=== PATIENT | male | born 1950 | race Caucasian/White ===

== ENCOUNTER 2024-11-01 20:52 | Emergency (ER) | payer BC, SELFPAY ==
--- NOTE | ~2024-11-01 | CT_ITS ---
CT brain wo con Ordering provider: Srinivasa Lam MD History: 74 years Male with . Fall- onEliquis . Comparison: None. Technique: CT of the head without contrast. Radiation reduction technique utilized.The dose-length product was 681 mGy-cm. BRAIN PARENCHYMA AND CSF SPACES: Mild leukoaraiosis and diffuse cortical atrophy. Mild atheromatous d isease. No midline shift, mass effect or hemorrhage. The brain parenchyma and CSF spaces are otherwi se normal. VISUALIZED PARANASAL SINUSES: Bilateral ethmoid sinus disease. MASTOIDS: Well aerated. BONES: The bones appear intact. SOFT TISSUES: Visualized nasopharynx is normal. Superficial soft tissues are normal. Hyperdense area seen in the left eye globe which may be calcification IMPRESSION: No acute intracranial findings. Reviewed, dictated and finalized at location A.
--- NOTE | ~2024-11-01 | CT_ITS ---
CT cervical spine wo con Ordering provider: Srinivasa Lam MD History: . Fall- on Eliquis . Comparison: None. Technique: CT of the cervical spine was performed without contrast. Sagittal and coronal reformatted images were also obtained and reviewed. Automated exposure control and iterative reconstruction estefany hnique were employed. The dose-length product was 568.07 mGy-cm. FINDINGS: VERTEBRAE: No subluxation or acute fracture. The occipital condyles are intact. DISC SPACES: Severe narrowing of the disc spaces C3-C4, C4-C5, C5-C6, C6-C7 and C7-T1. Multilevel fac et joint disease is seen in the upper cervical area. Multilevel uncovertebral joint osteoarthritic ch anges. Bilateral intervertebral foraminal narrowing at the level of C2-C3, C3-C4, C4-C5, C5-C6, C6-C7 and C7 -T1 multilevel spinal canal stenosis seen. PARASPINOUS SOFT TISSUES: Bilateral carotid artery calcifications. IMPRESSION: No acute osseous abnormality cervical spine. Multilevel degenerative disc disease. Reviewed, dictated and finalized at location A.
[2024-11-01 21:23] VITALS: BP 128/66; PULSE 73; RESP 18; TEMP 36.3; O2SAT 96
[2024-11-01 23:26] VITALS: BP 159/70; O2SAT 100
[2024-11-01 23:31] VITALS: BP 151/73; O2SAT 99
--- NOTE | 2024-11-01 23:57 | ED.FALL ---
HPI - Fall General Chief Complaint: Fall Stated Complaint: Fall transferring from WC to bed-hit head,+Eliquis Time Seen by Provider: 11/01/24 23:25 History of Present Illness HPI Narrative: 74-year-old male presenting from his residential facility after a minor closed head injury. Patient states that he was transferring from his wheelchair to the bed when he fell and struck his head. Struck his head on some drawers but did not lose consciousness. Patient states that he feels fine has no complaints but his facility transferred him to the ER as he is on Eliquis. Patient denies any injury and has no somatic complaints at this time and wishes to go back home. Denies any nausea, vomiting, mental status changes, chest pain, shortness a breath. No abdominal pain. 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 Related Data Allergies Allergy/AdvReac Type Severity Reaction Status Date / Time No Known Allergies Allergy Verified 11/01/24 20:56 Review of Systems Review of Systems: As reviewed above in HPI Exam Narrative: GENERAL: [Well-appearing, well-nourished, and in no acute distress.] HEAD: [Normocephalic, atraumatic.] EYES: [PERRLA and EOMI.] ENT: Nares clear, no rhinorrhea or epistaxis. Mucous membranes moist. NECK: Supple. CHEST: [Clear to auscultation. No respiratory distress.] HEART: [Regular rate and rhythm]. No murmur heard. [Normal peripheral pulses.] ABDOMEN: [Soft, nondistended], [nontender], [No rigidity or guarding] EXTREMITIES: Left [id number] amputation, no signs of trauma or injury to the extremities. Full range of motion otherwise. SKIN: Warm, dry, no rash. NEURO: [No focal deficits]. Alert and oriented [x3.] Moving all extremities, no sensation changes or motor deficits. No facial asymmetries. PSYCH: [Normal mood and affect.] Course Vital Signs Vital signs: Vital Signs Temperature 36.3 C L 11/01/24 21:23 Pulse Rate 73 11/01/24 21:23 Respiratory Rate 18 11/01/24 21:23 Blood Pressure 128/66 11/01/24 21:23 Pulse Oximetry 96 11/01/24 21:23 Oxygen Delivery Room Air 11/01/24 21:23 Temperature 36.3 C L 11/01/24 21:23 Pulse Rate 73 11/01/24 21:23 Respiratory Rate 18 11/01/24 21:23 Blood Pressure 151/73 H 11/01/24 23:31 Pulse Oximetry 99 11/01/24 23:31 Oxygen Delivery Room Air 11/01/24 21:23 MDM - Fall MDM Narrative Medical decision making narrative: 74-year-old male presenting to the emergency department after a closed head injury on Eliquis. Patient is not any acute distress and denies any complaints. He did not lose consciousness and states that he was trying to transfer from his wheelchair to the bed and fell and hit his head. Reports taking Eliquis but denies any complaints and states “I feel fine. He has normal vital signs here in unrevealing physical examination. Normal mentation. He has a left AKA making wheelchair bound but no other physical exam findings of concern at this time. No hematoma or bruising or any bleeding. Given his age and risk factors a CT of the head and CT of the cervical spine was ordered given his fall on blood thinners. Low suspicion for any acute intracranial or cervical pathology given his normal examination and lack of symptoms. Patient did not require any analgesia at this time. CT scans were reviewed independently and also interpreted by Radiology without any acute osseous process and no intracranial pathology. Patient be safely discharged back to his facility and EMS ambulance transportation was arranged given his debility with left AKA. Patient remains comfortable and has no complaints on re-evaluations. Medical Records Attestation: I reviewed the patient's medical records. Imaging Data Attestation: I personally reviewed and interpreted this imaging study as follows: My impression: Impressions Head CT 11/01/24 21:39 IMPRESSION: No acute intracranial findings. Cervical Spine CT 11/01/24 22:34 IMPRESSION: No acute osseous abnormality cervical spine. Multilevel degenerative disc disease. Discharge Plan Discharge Clinical Impression: CHI (closed head injury), History of above-knee amputation of left lower extremity Patient Disposition: NH Correction/Asst Living Condition: Stable Instructions: Antibiotic Form, Contusion in Adults (ED) Additional Instructions: Follow-up with regular doctor. Return with any urgent or emergent concerns at any time. Patient Language: [place] Islander Follow-up/Referrals: PHYSICIAN NOT ON STAFF,NONSTAFF [Primary Care Provider] - Stand Alone Forms: Shelter Discharge Time of Disposition: 23:57
--- NOTE | 2024-11-02 00:01 | PC.NURSE ---
Pt urine incontinent, brief applied and bed sheet changed.
--- NOTE | 2024-11-02 00:03 | PC.NURSE ---
Pt presents to ED due to fall from wheelchair to bed and hit his head. Pt denies LOC, ROM intact, and RICHARD. Pt AOx4, denies pain and/or discomfort, states I want to go back why am I here. VS WNL
--- NOTE | 2024-11-02 00:13 | PC.NURSE ---
JELANI Lainez from [facility], [place] made aware pt is being discharged.
== END 2024-11-02 01:35 ==
PROVIDERS: Emergency Provider Student in an Organized Health Care Education/Training Program
DX: S09.90XA Unspecified injury of head, initial encounter (principal); Z79.01 Long term (current) use of anticoagulants; Z89.512 Acquired absence of left leg below knee; W05.0XXA Fall from non-moving wheelchair, initial encounter; Y92.129 Unspecified place in nursing home as the place of occurrence of the external cause
CPT/HCPCS: 70450; 72125; 99284

== ENCOUNTER 2025-05-29 23:10 | Observation (INO) | payer BC, SELFPAY ==
--- NOTE | ~2025-05-29 | CT_ITS ---
CT HEAD NON-CONTRAST CT C-SPINE Clinical History: FALL; AMS Comparison: 11/01/2024 Technique: Unenhanced axial images skull base to vertex. Coronal, sagittal reformats. Axial images thoracic inlet to skull base. Sagittal and coronal reformats. CT images acquired with automatic exposure control for dose reduction DLP: 757 mGy-cm Findings: Head: Age-related atrophy. White matter microvascular ischemic changes Sulci, ventricles: Diffusely prominent as before. No intracerebral hemorrhage. No evidence acute territorial infarct. No mass effect, midline shift, intra-/extra-axial fluid collection. Bony calvarium intact. Visualized paranasal sinuses: Clear. Mastoid air cells: Clear. C-spine: No acute fracture or listhesis. Moderate degenerative changes and disc disease. Prevertebral soft tissues within normal limits. Visualized lung apices: Mild paraseptal emphysema. Visualized thyroid: Unremarkable. No enlarged cervical nodes. IMPRESSION: HEAD: 1. No acute intracranial findings. C-SPINE: 1. No acute fracture. Reviewed, dictated and finalized at location R. ETING COPYWRITER IMPRESSION: HEAD: 1. No acute intracranial findings. C-SPINE: 1. No acute fracture.
--- NOTE | ~2025-05-29 | CT_ITS ---
EXAM/PROCEDURE: CT chest abdomen pelvis w con HISTORY: AMS COMPARISON: None available. TECHNIQUE: Contrast-enhanced CT of the chest abdomen and pelvis FINDINGS: In the CHEST, bibasilar atelectatic and fibrotic appearing changes with no consolidation effusion or pneumothorax. Heart size normal with no significant pericardial effusion. Extensive coronary artery calcification and/or stenting. No bulky lymphadenopathy. Significant narrowing in the left mainstem bronchus, and milder narrowing in the lower trachea and right mainstem. Diffuse degenerative changes throughout the bones. In the ABDOMEN AND PELVIS, the bowel gas pattern is nonobstructive with no free air free fluid or pneumatosis. Large amount of stool in the rectal vault region and a thickened appearance of the urinary bladder wall. No hydroureteronephrosis. Cholelithiasis with no gross CT evidence of acute cholecystitis pancreatitis or biliary ductal dilatation. Liver spleen adrenal glands and nondistended/unopacified stomach unremarkable. Aorta normal size. No bulky lymphadenopathy or masses seen. IMPRESSION: 1. Bibasilar atelectatic/fibrotic appearing changes in the lungs. Left mainstem bronchial findings may represent developing bronchomalacia. 2. No acute surgical abnormality identified in the abdomen or pelvis. Urinary bladder wall thickening could be associated with cystitis. Large amount of stool in the rectal vault suggest constipation. 3. Cholelithiasis. 4. Other findings as above. NOTE: Preliminary radiology report provided by [facility] radiologist/physician. Reviewed, dictated and finalized at location A. ERLIGHT DEVELOPER IMPRESSION: 1. Bibasilar atelectatic/fibrotic appearing changes in the lungs. Left mainstem bronchial findings may represent developing bronchomalacia. 2. No acute surgical abnormality identified in the abdomen or pelvis. Urinary b ladder wall thickening could be associated with cystitis. Large amount of stool in the rectal vault suggest constipation. 3. Cholelithiasis. 4. Other findings as above. NOTE: Preliminary radiology report provided by [facility] radiologist/physician.
--- NOTE | ~2025-05-29 | XR_ITS ---
Examination: XR chest 1V portable Clinical History: AMS Comparison: None Technique: Portable AP Findings: Heart size normal. Mild bibasilar atelectasis and/or scarring. No acute bony abnormality. IMPRESSION: 1. No acute cardiopulmonary findings given portable technique. Reviewed, dictated and finalized at location R. B TECH
--- NOTE | ~2025-05-29 | CT_ITS ---
EXAM/PROCEDURE: CTA brain carotid HISTORY: AMS COMPARISON: None available. TECHNIQUE: Contrast-enhanced CT angiography of the head and neck performed. FINDINGS: Chronic appearing volume loss throughout with somewhat prominent ventricles noted. No large acute ischemic event, mass effect or hemorrhage seen. Three-vessel left-sided arch present appears normal. Common carotid and cervical ICAs as well as vertebral arteries are patent. The left vertebral artery slightly dominant. Within the intracranial circulation, the terminal carotid as well as anterior middle cerebral arteries are patent. In the posterior circulation, the distal vertebral arteries basilar artery and posterior cerebral arteries are patent. No discrete aneurysm, dural sinus thrombosis or AVM seen. No abnormal enhancing lesions or masses. Benefits degenerative changes in the bones noted. No gross acute soft tissue neck abnormality seen. IMPRESSION: 1. No critical stenosis or occlusion of the arteries. 2. Diffuse volume loss disproportionate for the ventricle; query if patient has history suggestive of NPH. NOTE: Preliminary radiology report provided by [facility] radiologist/physician. Reviewed, dictated and finalized at location A. LE DATABASE MANAGER
[2025-05-29 23:10] VITALS: BP 128/85; PULSE 79; RESP 15; TEMP 36.4; O2SAT 93
--- NOTE | 2025-05-29 23:11 | ECG_ITS ---
Test Date: 2025-05-29 23:29:50 Measurements Intervals [place] Rate: 79 P: 47 CO: 180 QRS: 17 QRSD: 100 T: 94 QT: 353 QTc: 407 Interpretive Statements SINUS RHYTHM WITH OCCASIONAL VENTRICULAR PREMATURE COMPLEXES LOW QRS VOLTAGE IN PRECORDIAL LEADS NONSPECIFIC ST & T-WAVE ABNORMALITY- DIFFUSE LEADS BORDERLINE ECG No previous ECG available for comparison Electronically Signed On 05-30-2025 06:10:48 INTERIOR DESIGN PRINCIPAL by Bonilla Zheng D.O.
--- NOTE | 2025-05-29 23:21 | ED.AMS ---
HPI - Altered Mental Status General Chief Complaint: Altered Mental Status Stated Complaint: ALTERED LOC, LETHARGY, FALL Time Seen by Provider: 05/29/25 23:14 Source: EMS Mode of arrival: EMS Limitations: altered mental status History of Present Illness HPI narrative: Patient is a 74-year-old male presents to the emergency department via EMS for altered mental status, lethargy, fall. Patient reportedly had a fall earlier today, was seen by the doctor and was reported to be okay and a workup was done. Patient was found poorly responsive at 10:30 p.m. tonight, open eyes to sternal rub, is typically alert and oriented x4, is oriented times 1-2 at this time. Fall this morning was unwitnessed. Patient denies any current complaints. Related Data Allergies Allergy/AdvReac Type Severity Reaction Status Date / Time No Known Allergies Allergy Verified 11/01/24 20:56 Review of Systems Review of Systems: ROS unobtainable: Yes unobtainable due to mental status Exam Narrative: CONST: Lethargic. HENMT: Head is normocephalic and atraumatic. Dry mucous membranes. No posterior oropharynx erythema. EYES: No scleral icterus. No conjunctival injection or pallor. Pupils are 1 mm bilaterally, round and sluggishly reactive. Gaze is midline. NECK: No palpable cervical lymphadenopathy. RESP: Speaking in phrases. Normal respiratory effort. Diffusely rhonchorous breath sounds. CARDIO: Regular rate. Regular rhythm. 2+ femoral and radial pulses bilaterally. GI: Nondistended. No tenderness to palpation. Soft. : No CVA tenderness to palpation. SKIN: Warm and dry. NEURO: following basic commands to open his eyes, squeeze fingers both hands, lifts both arms without any focal strength deficits however both upper extremities are weak with motor strength a 1-2/5, lifts both legs on command with no focal asymmetry and motor strength is 1-2/5 bilaterally. Withdraws to noxious stimuli in all 4 extremities. Opens eyes to verbal stimuli. Gaze is midline. Speech is clear and fluent. EXTREM/MSK/BACK: No pedal edema. Left AKA. PSYCH: Normal affect. Course Vital Signs Vital signs: Vital Signs Temperature 97.5 F L 05/29/25 23:10 Pulse Rate 79 05/29/25 23:10 Respiratory Rate 15 05/29/25 23:10 Blood Pressure 128/85 05/29/25 23:10 Pulse Oximetry 93 05/29/25 23:10 Oxygen Delivery Room Air 05/29/25 23:10 Temperature 97.5 F L 05/29/25 23:10 Pulse Rate 79 05/29/25 23:10 Respiratory Rate 15 05/29/25 23:10 Blood Pressure 128/85 05/29/25 23:10 Pulse Oximetry 94 05/30/25 01:38 Oxygen Delivery Room Air 05/30/25 01:38 [facility] MDM Narrative Medical decision making narrative: Patient presents with the above complaint. Initial vitals are remarkable for no significant abnormalities. Physical examination as noted above. Plan discussed: laboratory analysis, EKG, imaging. Patient taken stat to head CT and CT C-spine. Patient ordered IVF, naloxone, continuous cardiac monitoring, continuous pulse oximetry. CT of the head preliminary findings per Radiology impression is no acute intracranial abnormality when compared to prior study on 11/01/2024. Correlate for normal pressure hydrocephalus. CT of the cervical spine without contrast preliminary findings radiology interpretation is no acute C-spine findings when compared to prior on 11/01/2024. Urinalysis reveals trace ketones, positive nitrate, 2+ leukocyte esterase, 21-50 wbc's, 4+ bacteria. No old urine cultures on file. Patient ordered Rocephin. CBC reveals a hemoglobin of 13.8, platelet count 141, immature granulocyte count of 0.19. Coags reveal PT of 15.0, INR 1.2, APTT of 39.6. ABG reveals a pH is 7.43, pCO2 of 32.9, PaO2 of 99.7, bicarb 20.8 consistent with a likely metabolic acidosis with respiratory alkalosis. Comprehensive metabolic panel reveals a sodium 135, bicarb 21, BUN of 31, glucose 135. Lipase is 24. Magnesium is 2.1. Phosphorus is 4.8. Lactic acid is 1.3. UDS is positive for opiates. Salicylates are less than 1.0. Acetaminophen levels less than 10. Ethyl alcohol level is less than 10. Troponin is less than 0.012. Total creatine kinase is 220. CRP is 5.2. BNP is 368. Procalcitonin is 0.1. TSH is 1.46. After receiving naloxone patient appears much more alert, eyes open not requiring any stimuli, gaze is midline, speech is clear and fluent, patient is oriented to himself, does not know what hospital he is at right now, believes the year is 2023. Patient is following all commands, strength is 5/5 in all 4 extremities, no drift of the bilateral upper extremities or bilateral lower extremities. No dysmetria with [id number] testing bilaterally. Visual beckwith intact to confrontation, no nystagmus, extraocular motions intact, no facial asymmetry, unable to perform [id number]-[id number] testing due to left lower extremity AKA. CTA neck preliminary findings radiology interpretation is arterial structures patent, no flow limitation. Spine reported separately. CTA of the head preliminary findings radiology interpretation is no large vessel occlusion. Consider MRI if there is further concern. CT of the chest preliminary findings radiology interpretation revealed no acute findings. CT of the abdomen pelvis preliminary findings radiology interpretation is probable cystitis. Otherwise no acute findings. Viral panel comes back positive for COVID. I spoke with the hospitalist on-call who has accepted the patient for admission. Differential Diagnosis Differential Diagnosis: Metabolic derangement, electrolyte derangement, intracranial hemorrhage, fracture, UTI, pneumonia, ACS, dysrhythmia, polypharmacy, CVA. Medical Records I have reviewed the following patient records and this information was taken into consideration when formulating the assessment and plan.: previous ER visits Lab Data MDM Lab Attestation statement: I personally reviewed the patient's lab results. 05/30/25 00:00 05/30/25 00:00 Labs: Lab Results 05/30/25 05/30/25 Range/Units 00:00 01:37 WBC 6.3 (4.5-10.0) K/mm3 RBC 4.77 (4.6-6.20) M/mm3 Hgb 13.8 L (14.0-18.0) g/dL Hct 41.1 L (42.0-52.0) % MCV 86.2 (80-100) fl MCH 28.9 (26-34) pg MCHC 33.6 (32-36) g/dl RDW 15.0 H (11.5-14.5) % Plt Count 141 L (150-375) k/mm3 MPV 10.2 (7.4-10.4) fl Immature Gran % (Auto) 3.0 H (0-0.5) % Neut % (Auto) 60.5 (45.5-73.1) % Lymph % (Auto) 23.8 (18.3-44.2) % Swain % (Auto) 10.6 H (2.6-8.5) % Eos % (Auto) 1.1 (0-4.4) % Baso % (Auto) 1.0 (0.2-1.2) % Lymph # (Auto) 1.49 (0.9-3.2) K/mm3 [place]ain # (Auto) 0.7 H (0.1-0.6) K/mm3 Eos # (Auto) 0.1 (0-0.3) K/mm3 Baso # (Auto) 0.1 (0.0-0.1) K/mm3 Abs Immat Gran (auto) 0.19 H (0.00-0.031) K/mm3 Absolute Neuts (auto) 3.8 (1.3-6.7) K/mm3 Absolute Nucleated RBC 0.000 (0.0-0.012) K/mm3 Nucleated RBC % 0.0 (0.0-0.2) % PT 15.0 H (11.1-14.7) Seconds INR 1.2 APTT 39.6 H (22.3-36.8) Seconds Sodium 135 L (137-145) mmol/L Potassium 4.4 (3.4-5.0) mmol/L Chloride 103 (98-107) mmol/L Carbon Dioxide 21 L (22-30) mmol/L Anion Gap 11 (4-12) mmol/L BUN 31 H (9-20) mg/dL Creatinine 0.98 (0.7-1.3) mg/dL Estim Creat Clear Calc Not Reportable Estimated GFR > 60 (59 - ) Glucose 135 H (65-110) mg/dL Lactic Acid 1.3 (0.7-2.0) mmol/L Calcium 9.1 (8.4-10.2) mg/dL Phosphorus 4.8 H (2.5-4.5) mg/dL Magnesium 2.1 (1.6-2.3) mg/dL Total Bilirubin 0.8 (0.2-1.3) mg/dL AST 28 (17-59) U/L ALT 18 (6-50) U/L Alkaline Phosphatase 50 (38-126) U/L Total Creatine Kinase 220 H (55-170) U/L Troponin I < 0.012 (0.000-0.034) ng/mL C-Reactive Protein 5.2 H (<1.0) mg/dL NT-Pro-B Natriuret Pep 368 H (19.9-100) pg/mL Total Protein 8.1 (6.3-8.2) g/dL Albumin 4.5 (3.5-5.1) g/dL Lipase 24 (23-300) U/L Procalcitonin 0.1 ng/mL TSH (Reflex) 1.460 (0.465-4.68) uIU/mL Urine Color Yellow (Yellow) Urine Appearance Clear (Clear) Urine pH 6.0 (5.0-9.0) Ur Specific [place] 1.017 (1.001-1.035) Urine Protein Negative (Negative) mg/dL Urine Glucose (UA) Negative (Negative) mg/dL Urine Ketones Trace H (Negative) mg/dL Ur Blood (Man) Negative (Negative) Urine Nitrate Positive H (Negative) Urine Bilirubin Negative (Negative) Urine Urobilinogen 1.0 (<2.0) mg/dL Leukocyte Esterase Rfl 2+ H (Negative) RICARDO/UL Urine RBC 0-2 (0-2) /hpf Urine WBC 21-50 H (0-3) /hpf Ur Squamous Epith Cells None seen (Few) /hpf Urine Bacteria 4+ H /hpf Urine Casts 0-2 Salicylates < 1.0 L (2-20) mg/dL Urine Opiates Screen Positive A (Negative) Urine Methadone Screen Negative (Negative) Acetaminophen < 10 L (10-30) ug/mL Ur Barbiturates Screen Negative (Negative) Ur Phencyclidine Scrn Negative (Negative) Ur Amphetamine Screen Negative (Negative) U Benzodiazepines Scrn Negative (Negative) Urine Cocaine Screen Negative (Negative) U Cannabinoids Screen Negative (Negative) Ethyl Alcohol < 10 (<10) mg/dL Influenza A (RT-PCR) Negative (Negative) Influenza B (RT-PCR) Negative (Negative) RSV (RT-PCR) Negative (Negative) SARS-CoV-2 RNA (RT-PCR) Positive A (Negative) ABG Data ABG results: 05/30/25 00:20 ABG pH 7.418 ABG pCO2 32.9 L ABG pO2 99.7 ABG HCO3 20.8 L ABG O2 Saturation 97.7 ABG O2 Content 20.6 ABG Base Excess -2.7 A-a Gradient 4.8 Total Hemoglobin 7.2 L* Imaging Data Attestation: I personally reviewed and interpreted this imaging study as follows: ECG Data EKG #1: Attestation: I personally reviewed and interpreted this ECG as follows: ECG completion date: 05/29/25 ECG completion time: 23:29 Interpretation: Rate of 79, rhythm is sinus rhythm with occasional PVC, no ST elevations, nonspecific ST and T-wave abnormality. Critical Care Time Critical Care Time Critical Care Time: Yes Indication: Encephalopathy. Time Type: Intermittent Initial evaluation, discuss w/ involved parties, attempting to gather old records: 10 minutes Documenting medical record: 5 minutes Review of results (EKG's, labs, imaging): 5 minutes Serial repeat bedside evaluation: 10 minutes Discussing case with multiple memebers of the care team and consultants: 5 minutes Total Critical Care Time: 35 Discharge Plan Discharge Clinical Impression: Opioid use, COVID Altered mental status Qualifiers: Altered mental status type: unspecified Qualified Code(s): R41.82 - Altered mental status, unspecified UTI (urinary tract infection) Qualifiers: Urinary tract infection type: site unspecified Hematuria presence: without hematuria Qualified Code(s): N39.0 - Urinary tract infection, site not specified Patient Disposition: Still a Patient Condition: Stable Patient Language: [place]i Follow-up/Referrals: PHYSICIAN NOT ON STAFF,NONSTAFF [Primary Care Provider] Time of Disposition: 02:47
[2025-05-30] VITALS (16 sets, daily range): BP systolic 122–168; BP diastolic 54–83; PULSE 63–78; RESP 14–20; TEMP 36.2–36.5; O2SAT 94–99; BMI 27.4
[2025-05-30 00:16] LABS: Add Urine Microscopic? YES; Appearance Urine Clear (Clear); Glucose Urine UA Negative (Negative); Leukocyte Esterase Ur 2+ LEU/UL (Negative); Nitrate Urine Positive (Negative); Non Pathogenic Casts 0-2; Specific Grav Ur 1.017 (1.001-1.035)
[2025-05-30] MEDS: NALOXONE HCL INJ 2 MG/2 ML AMP IV PUSH (00:20)
[2025-05-30] MEDS: SODIUM CHLORIDE 0.9% IV 1,000 ML 150 ML IV CONT ×2 (00:21→06:15)
[2025-05-30 00:25] LABS: Lipase 24 U/L (23-300); Magnesium 2.1 mg/dL (1.6-2.3)
[2025-05-30 00:26] LABS: HCO3 ABG 20.8 mEq/l (22.0-26.0); PCO2 ABG 32.9 mmHg (35.0-45.0); PO2 ABG 99.7 mmHg (80.0-100.0)
[2025-05-30 00:27] LABS: INR 1.2; Prothrombin Time 15.0 Seconds (11.1-14.7)
[2025-05-30 00:27] LABS: Oxygen Saturation ABG 97.7 % (95.0-100.0)
[2025-05-30 00:28] LABS: Partial Thromboplastin Time 39.6 Seconds (22.3-36.8)
[2025-05-30 00:29] LABS: Alveolar/Arterial O2 Gradient 4.8 mmHg; Oxygen Content ABG 20.6 %vol (16.0-22.0)
[2025-05-30 00:30] LABS: Hematocrit 41.1 % (42.0-52.0); Hemoglobin 13.8 g/dL (14.0-18.0); Immature Granulocyte Percent A 3.0 % (0-0.5); Lymphocytes Absolute Auto 1.49 K/mm3 (0.9-3.2); Mean Corpuscular HGB Conc 33.6 g/dl (32-36); Mean Corpuscular Hemoglobin 28.9 pg (26-34); Mean Corpuscular Volume 86.2 fl (80-100); Nucleated Red Blood Cells Absolute Auto 0.000 K/mm3 (0.0-0.012); Nucleated Red Blood Cells Perc 0.0 % (0.0-0.2); Platelet Count Result 141 k/mm3 (150-375); Red Blood Count 4.77 M/mm3 (4.6-6.20); White Blood Count 6.3 K/mm3 (4.5-10.0)
[2025-05-30 00:33] LABS: Alanine Aminotransferase 18 U/L (6-50); Albumin Level 4.5 g/dL (3.5-5.1); Alkaline Phosphatase 50 U/L (38-126); Anion Gap 11 mmol/L (4-12); Aspartate Amino Transferase 28 U/L (17-59); Bilirubin,Total 0.8 mg/dL (0.2-1.3); Blood Urea Nitrogen 31 mg/dL (9-20); Calcium 9.1 mg/dL (8.4-10.2); Carbon Dioxide 21 mmol/L (22-30); Chloride 103 mmol/L (98-107); Estimated Glomerular Filt Rate > 60; Glucose 135 mg/dL (65-110); Potassium 4.4 mmol/L (3.4-5.0); Sodium 135 mmol/L (137-145); Total Protein 8.1 g/dL (6.3-8.2)
[2025-05-30] MEDS: cefTRIAXone 1 GM in SODIUM CHLORIDE 0.9% IV 50 ML 100 ML IVPB (00:33)
[2025-05-30 00:34] LABS: Cannabinoid Screen Urine Negative (Negative)
[2025-05-30 00:35] LABS: Acetaminophen < 10 ug/mL (10-30); Salicylate < 1.0 mg/dL (2-20)
[2025-05-30 00:39] LABS: Troponin I < 0.012 ng/mL (0.000-0.034)
[2025-05-30 00:45] LABS: CRP 5.2 mg/dL (<1.0); Creatine Kinase 220 U/L (55-170)
[2025-05-30 00:51] LABS: NT Pro B Type Natriuretic Pept 368 pg/mL (19.9-100)
--- NOTE | 2025-05-30 00:55 | PC.NURSE ---
Pt brief soaked in urine, and covered in dry stool upon arrival. Pt brief changed and karen care done by this RN and network technology instructor. Pt placed on continuos cardiac and pulse oximeter monitoring.
[2025-05-30 01:03] LABS: Procalcitonin 0.1 ng/mL
[2025-05-30 01:13] LABS: Thyroid Stimulating Hormone Reflex 1.460 uIU/mL (0.465-4.68)
[2025-05-30] MEDS: SODIUM CHLORIDE 0.9% IV 1,000 ML 999 ML IV CONT (01:23)
[2025-05-30 02:25] LABS: Influenza A QL RT-PCR Negative (Negative); Influenza B QL RT-PCR Negative (Negative); RSV RNA, RT-PCR Negative (Negative); SARS-CoV-2 RNA PCR Positive (Negative)
--- NOTE | 2025-05-30 03:00 | ECG_ITS ---
Test Date: 2025-05-30 03:12:51 Measurements Intervals [place] Rate: 61 P: 75 [place]: 191 QRS: 23 QRSD: 95 T: 99 QT: 385 QTc: 390 Interpretive Statements SINUS RHYTHM WITH OCCASIONAL VENTRICULAR PREMATURE COMPLEXES LOW QRS VOLTAGE - DIFFUSE LEADS BORDERLINE ST-T WAVE ABNORMALITY- DIFFUSE LEADS BASELINE ARTIFACT- I, II, III, AVR ABNORMAL ECG Compared to ECG 05/29/2025 23:29:50 NO SIGNIFICANT CHANGE Electronically Signed On 05-30-2025 06:15:28 MANAGER INFUSION by Bonilla Zheng D.O.
[2025-05-30 03:55] LABS: Troponin I < 0.012 ng/mL (0.000-0.034)
--- NOTE | 2025-05-30 04:07 | PC.NURSE ---
JELANI Chandler from [facility] provided with plan of care update.
--- NOTE | 2025-05-30 06:19 | WPCEDHO ---
ED Hand Off Checklist All vitals yes IV Site documented:yes All med administrations documented:yes Triage Note Triage Note Pt arrived via [facility] 05/29/25 23:10 from [facility] due to altered mental status, pt was found unresponsive at 2230 after griggs rub pt opened eyes. Upon ED arrival pt AOx2 with baseline of AOx4, per EMS pt had an unwitnessed fall this morning. Pt able to answer questions at this time, following commands. Allergies No Known Allergies Allergy (Verified 11/01/24 20:56) Administered/Completed Medications Discontinued Medications Sodium Chloride (Normal Saline Iv) 1,000 mls @ 150 mls/hr IV CONT .Q6H40M STA Stop: 05/30/25 06:16 Last Infusion: 05/30/25 06:12 Dose: Infused Documented By: Admin: 05/30/25 00:21 Dose: 150 mls/hr Documented By: TITO Ceftriaxone Sodium 1 gm/ (Sodium Chloride) 50 mls @ 100 mls/hr IVPB ONCE STA Stop: 05/30/25 00:53 Last Infusion: 05/30/25 01:28 Dose: Infused Documented By: Admin: 05/30/25 00:33 Dose: 100 mls/hr Documented By: TITO Sodium Chloride (Normal Saline Iv) 1,000 mls @ 999 mls/hr IV CONT .Q1H1M STA Stop: 05/30/25 01:38 Last Infusion: 05/30/25 02:19 Dose: Infused Documented By: Admin: 05/30/25 01:23 Dose: 999 mls/hr Documented By: TITO Sodium Chloride (Normal Saline Iv) 1,000 mls @ 150 mls/hr IV CONT .Q6H40M STA Stop: 05/30/25 06:16 Last Admin: 05/30/25 06:15 Dose: 150 mls/hr Documented By: JR Naloxone HCl (Naloxone Hcl Inj 2 Mg/2 Ml Amp) 2 mg IV PUSH ONCE STA Stop: 05/29/25 23:44 Last Admin: 05/30/25 00:20 Dose: 2 mg Documented By: TITO Notes 05/30/25 04:07 Nurse Note by Lona Jung RN from [facility] provided with plan of care update. Initialized on 05/30/25 04:07 - END OF NOTE 05/30/25 00:55 (created 05/30/25 01:31) Nurse Note by Lona Jung Pt brief soaked in urine, and covered in dry stool upon arrival. Pt brief changed and karen care done by this RN and systems protection technician. Pt placed on continuos cardiac and pulse oximeter monitoring. Initialized on 05/30/25 01:31 - END OF NOTE Interventions/Assessments IV / Saline Lock, Insert Start: 05/29/25 23:11 Freq: STAT Status: Active Protocol: Document 05/30/25 04:45 EZG (Rec: 05/30/25 04:45 EZG [id number]) IV Assessment Peripheral Access Left Forearm IV Catheter Access Initiated IV Insertion Date 05/30/25 IV Insertion Time 04:45 Catheter Gauge 20 Ultrasound Used for Yes Placement IV Site Assessment WNL IV Care and WNL Maintenance Peripheral Access Left Hand IV Catheter Access Discontinued Access Peripheral Access Right Antecubital IV Catheter Access Discontinued Access PA: Cardiovascular Assessment Start: 05/29/25 23:09 Freq: Status: Active Protocol: Document 05/30/25 01:38 EZG (Rec: 05/30/25 01:42 EZG [id number]) Cardiovascular Assessment Cardiovascular None Symptoms Skin Description Normal Color Heart Sounds Normal Jugular Vein None Distention PA: Neurological Assessment Start: 05/29/25 23:09 Freq: Status: Active Protocol: Document 05/30/25 01:38 EZG (Rec: 05/30/25 01:42 EZG [id number]) Neurological Assessment Level of Drowsy Consciousness Arousable to Verbal Orientation Oriented to Person,Oriented to Place,Disoriented to Place,Disoriented to Time Neurological Confusion,History of Loss of Consciousness Symptoms Hallucination Type None Behavior Cooperative Patient Able to Comprehend Comprehension [place] Coma Scale Eyes Open Verbal Disoriented Motor Follows Commands Bernadette Coma Total 14 Score PA: Respiratory Assessment Start: 05/29/25 23:09 Freq: Status: Active Protocol: Document 05/30/25 01:38 EZG (Rec: 05/30/25 01:42 EZG [id number]) Respiratory Assessment Symptoms Difficulty Clearing Secretions Effort Normal Pattern Regular Depth Normal Chest Expansion Symmetrical Adult Capillary Normal/Less than 2 Seconds Refill Cough Description Productive Sputum Amount None Oxygen Delivery Oxygen Delivery Room Air Pulse Oximetry (90- 94 100) Last Vital Signs Temperature 97.5 F L 05/29/25 23:10 Pulse Rate 70 05/30/25 04:01 Respiratory Rate 15 05/30/25 04:01 Pulse Oximetry 98 05/30/25 04:01 Blood Pressure 123/80 05/30/25 04:01 Blood Pressure Mean 93 05/30/25 04:01 Blood Pressure Position Sitting 05/29/25 23:10 Oxygen Delivery Room Air 05/30/25 01:38 Last Result - Abnormals Only Hgb 13.8 g/dL (14.0-18.0) L 05/30/25 00:00 Hct 41.1 % (42.0-52.0) L 05/30/25 00:00 RDW 15.0 % (11.5-14.5) H 05/30/25 00:00 Plt Count 141 k/mm3 (150-375) L 05/30/25 00:00 Immature Gran % (Auto) 3.0 % (0-0.5) H 05/30/25 00:00 [place] % (Auto) 10.6 % (2.6-8.5) H 05/30/25 00:00 [place] # (Auto) 0.7 K/mm3 (0.1-0.6) H 05/30/25 00:00 Abs Immat Gran (auto) 0.19 K/mm3 (0.00-0.031) H 05/30/25 00:00 PT 15.0 Seconds (11.1-14.7) H 05/30/25 00:00 APTT 39.6 Seconds (22.3-36.8) H 05/30/25 00:00 ABG pCO2 32.9 mmHg (35.0-45.0) L 05/30/25 00:20 ABG HCO3 20.8 mEq/l (22.0-26.0) L 05/30/25 00:20 Total Hemoglobin 7.2 g/dL (12.0-18.0) L* 05/30/25 00:20 Sodium 135 mmol/L (137-145) L 05/30/25 00:00 Carbon Dioxide 21 mmol/L (22-30) L 05/30/25 00:00 BUN 31 mg/dL (9-20) H 05/30/25 00:00 Glucose 135 mg/dL (65-110) H 05/30/25 00:00 Phosphorus 4.8 mg/dL (2.5-4.5) H 05/30/25 00:00 Total Creatine Kinase 220 U/L (55-170) H 05/30/25 00:00 C-Reactive Protein 5.2 mg/dL (<1.0) H 05/30/25 00:00 NT-Pro-B Natriuret Pep 368 pg/mL (19.9-100) H 05/30/25 00:00 Urine Ketones Trace mg/dL (Negative) H 05/30/25 00:00 Urine Nitrate Positive (Negative) H 05/30/25 00:00 Leukocyte Esterase Rfl 2+ RICARDO/UL (Negative) H 05/30/25 00:00 Urine WBC 21-50 /hpf (0-3) H 05/30/25 00:00 Urine Bacteria 4+ /hpf H 05/30/25 00:00 Salicylates < 1.0 mg/dL (2-20) L 05/30/25 00:00 Urine Opiates Screen Positive (Negative) A 05/30/25 00:00 Acetaminophen < 10 ug/mL (10-30) L 05/30/25 00:00 SARS-CoV-2 RNA (RT-PCR) Positive (Negative) A 05/30/25 01:37
--- NOTE | 2025-05-30 06:57 | ADMGEN ---
This patient, Jaspreet Joseph, was admitted to Virtual Bed 3rd Floor-1. Patient/family oriented to hospital policies and general routines including ID bracelet, bed and alarms, visiting hours, pain management, procedures, bathroom and other care routines, personal items, smoking policy, room service/diet, and visiting hours. Information on how to activate the Rapid Response Team has been discussed. Patient/Family are encouraged to report perceived risks to care and to ask questions if they do not understand what they are told or what they should do.
[2025-05-30] MEDS: BISACODYL 10 MG SUPPOSITORY RECTAL (10:06)
--- NOTE | 2025-05-30 16:45 | PM.IMHP2 ---
H&P: HPI History of Present Illness Date/Time: 05/30/25 16:45 Chief Complaint: AMS Narrative: 74-year-old male past medical history of BPH, depression/anxiety, dementia presented to the account of altered mental status. At the time of this encounter patient was along its unoriented place person but not time. Was unable to provide any history except same day he did not remember what happened that indication ER presentation. ER evaluation notable for stable normal signs within normal limits, patient on med. Labs notable for creatinine 0.9 UA CK 220 UA positive for nitrate, leukocyte esterase, pyuria and bacteriuria UDS positive for opioids, COVID positive. CT abdomen showed no acute lung changes, urinary bladder wall thickening associated with cystitis and large amount of stool in the rectal vault. CT head unremarkable. Patient was on antibiotics prior to admission. Review of Systems Review of Systems: All other systems reviewed and negative except as noted in the history above [facility] Social History Social History Smoking status: Unknown if ever smoked Spiritual care concerns: No Meds Home Medications and Allergies Home Medications ?Medication ?Instructions ?Recorded ?Confirmed ?Type apixaban 5 mg tablet (Eliquis) 5 mg PO BID 05/30/25 05/30/25 History atorvastatin 40 mg tablet 40 mg PO QPM 05/30/25 05/30/25 History cetirizine 10 mg tablet 10 mg PO DAILY 05/30/25 05/30/25 History cholecalciferol (vitamin D3) 25 25 mcg PO DAILY 05/30/25 05/30/25 History mcg (1,000 unit) capsule divalproex 500 mg tablet,delayed 500 mg PO .am 05/30/25 05/30/25 History release duloxetine 60 mg capsule,delayed 60 mg PO DAILY 05/30/25 05/30/25 History release finasteride 5 mg tablet 5 mg PO DAILY 05/30/25 05/30/25 History gabapentin 600 mg tablet 600 mg PO Q8H 05/30/25 05/30/25 History hydrocodone 5 mg-acetaminophen 325 1 tablet PO Q12H 05/30/25 05/30/25 History mg tablet ipratropium 0.5 mg-albuterol 3 mg 3 ml inhalation Q8H 05/30/25 05/30/25 History (2.5 mg base)/3 mL nebulization soln memantine 10 mg tablet 10 mg PO BID 05/30/25 05/30/25 History nortriptyline 25 mg capsule 25 mg PO .night 05/30/25 05/30/25 History omeprazole 20 mg capsule,delayed 20 mg PO DAILY 05/30/25 05/30/25 History release tamsulosin 0.4 mg capsule 0.4 mg PO .bedtime 05/30/25 05/30/25 History thiamine mononitrate (vit B1) 100 100 mg PO DAILY 05/30/25 05/30/25 History mg tablet (Vitamin B-1 (mononitrate)) Allergies Allergy/AdvReac Type Severity Reaction Status Date / Time No Known Allergies Allergy Verified 05/30/25 06:59 Vital Signs Vital Signs - 24 hr 05/29/25 23:10 05/30/25 01:38 05/30/25 01:38 Temperature 97.5 F L Pulse Rate 79 77 Respiratory Rate 15 18 Blood Pressure 128/85 133/71 Pulse Oximetry 93 94 96 Oxygen Delivery Room Air Room Air 05/30/25 01:47 05/30/25 01:57 05/30/25 02:16 Temperature Pulse Rate 77 73 78 Respiratory Rate 16 16 14 Blood Pressure 140/75 140/75 168/77 H Pulse Oximetry 95 95 95 Oxygen Delivery 05/30/25 02:30 05/30/25 02:32 05/30/25 02:46 Temperature Pulse Rate 74 73 67 Respiratory Rate 18 15 16 Blood Pressure 152/75 H 146/81 H Pulse Oximetry 97 96 Oxygen Delivery 05/30/25 03:01 05/30/25 03:17 05/30/25 03:31 Temperature Pulse Rate 69 67 64 Respiratory Rate 15 17 15 Blood Pressure 150/83 H 144/62 H 141/72 H Pulse Oximetry 96 99 Oxygen Delivery 05/30/25 03:45 05/30/25 04:01 05/30/25 07:00 Temperature 97.1 F L Pulse Rate 63 70 65 Respiratory Rate 15 15 16 Blood Pressure 159/73 H 123/80 140/67 Pulse Oximetry 99 98 99 Oxygen Delivery 05/30/25 08:00 05/30/25 14:00 Temperature 97.7 F Pulse Rate 69 Respiratory Rate 20 Blood Pressure 122/54 L Pulse Oximetry 97 Oxygen Delivery Room Air Exam Narrative: General: alert and comfortable Eyes: EOMI, PERRLA ENNT External ears normal, Neck is supple, no masses, Respiratory systems: Clear to auscultation Cardiovascular S1, S2, normal rhythm, no murmur, rub, or gallop; no thrill or palpable murmurs on palpation. Gastrointestinal: soft, non-tender, and non-distended abdomen with no masses; BS present Skin: no rash, lesions, ulcerations, subcutaneous nodules or induration Musculoskeletal: Left AKA Neurologic: Alert and oriented x2, non focal Mental Status Exam: Flat affect Results Labs Labs: Short CBC 05/30/25 Range/Units 00:00 WBC 6.3 (4.5-10.0) K/mm3 Hgb 13.8 L (14.0-18.0) g/dL Hct 41.1 L (42.0-52.0) % Plt Count 141 L (150-375) k/mm3 BMP 05/30/25 00:00 Sodium 135 L Potassium 4.4 Chloride 103 Carbon Dioxide 21 L BUN 31 H Creatinine 0.98 Glucose 135 H Calcium 9.1 Cardiac Enzymes 05/30/25 05/30/25 Range/Units 00:00 02:56 Total Creatine Kinase 220 H (55-170) U/L Troponin I < 0.012 < 0.012 (0.000-0.034) ng/mL Liver Function 05/30/25 Range/Units 00:00 Total Bilirubin 0.8 (0.2-1.3) mg/dL AST 28 (17-59) U/L ALT 18 (6-50) U/L Alkaline Phosphatase 50 (38-126) U/L Albumin 4.5 (3.5-5.1) g/dL Urine 05/30/25 Range/Units 00:00 Urine Color Yellow (Yellow) Urine Appearance Clear (Clear) Urine pH 6.0 (5.0-9.0) Ur Specific [place] 1.017 (1.001-1.035) Urine Protein Negative (Negative) mg/dL Urine Glucose (UA) Negative (Negative) mg/dL Assessment and Plan Assessment and plan (1) UTI (urinary tract infection): Qualifiers: Hematuria presence: without hematuria Urinary tract infection type: site unspecified Qualified Code(s): N39.0 - Urinary tract infection, site not specified Code(s): N39.0 - Urinary tract infection, site not specified Status: Acute (2) COVID: Code(s): U07.1 - COVID-19 Status: Acute (3) Altered mental status: Qualifiers: Altered mental status type: unspecified Qualified Code(s): R41.82 - Altered mental status, unspecified Code(s): R41.82 - Altered mental status, unspecified Status: Acute Plan AMS Likely from UTI, Constipation and Covid Baseline unknown for now CT AP and Chest, showed cystitis and Constipation Covid screen positive urine and blood culture, On Rocephin, IVF Started on Remdesivir PT/OT/ST Npo until patient passes Covid infection Continue Remdesivir monitor Constipation Dulcolax suppository daily Miralax Cystitis CT AP reviewed f/u urine and blood culture Continue home eliquis and Divalproex and review PMH DVT prophylaxis on home Eliquis Hospitalist MIPS Advance Care Plan I have confirmed that the patient's Advanced Care Plan is present, code status is documented, or surrogate decision maker is listed in patient medical record.: Yes Medication Reconciliation I have utilized all available resources to obtain, update and review the patients current medications (includes all prescriptions, OTC, herbals, cannabis, and nutritional supplements).: Yes
[2025-05-30] MEDS: MEMANTINE 10 MG TABLET PO (17:50)
[2025-05-30] MEDS: SODIUM CHLORIDE 0.9% IV 1,000 ML 75 ML IV CONT (17:51)
[2025-05-30] MEDS: REMDESIVIR 200 MG/NS 250 ML 200 MG/250 ML BAG 250 MG IVPB (17:51)
[2025-05-30] MEDS: ATORVASTATIN 40 MG TABLET PO (17:51)
[2025-05-30] MEDS: TAMSULOSIN HCL 0.4 MG CAPSULE PO (21:53)
[2025-05-30] MEDS: APIXABAN 5 MG TABLET PO (21:53)
--- NOTE | 2025-05-30 22:21 | PC.NURSE ---
Visited with patient during rounds. Remdesivir had occluded. Flushed IV. Patient complained that it burned and saw that it had blown. Educated patient that he was going to have to get a new IV. Missed and blew it. Patient then begin to complain that he did not want to be stuck again and he was not having any of this. Educated patient that he had Covid and that in order to get better quicker, then he would need a new IV to continue treatment. Patient insisted that he was not going to be stuck again. I asked to confirm that he was declining an IV to be placed. He confirmed. Asked that since was refusing IV placement then he was refusing IV treatment. He confirmed. Consulted with Jessy Germain.
--- NOTE | 2025-05-31 05:54 | PC.NURSE ---
Phlebotomists attempted to draw labs on this patient. Patient refused labs.
[2025-05-31 06:00] VITALS: BP 160/64; PULSE 61; RESP 18; TEMP 36.1; O2SAT 99
[2025-05-31] MEDS: DIVALPROEX SODIUM DR 250 MG TABEC 500 MG PO (08:53)
[2025-05-31] MEDS: APIXABAN 5 MG TABLET PO (08:54)
[2025-05-31] MEDS: FINASTERIDE 5 MG TABLET PO (08:54)
[2025-05-31] MEDS: DULoxetine HCL 60 MG CAPSULE.DR PO (08:54)
[2025-05-31] MEDS: MEMANTINE 10 MG TABLET PO (08:54)
[2025-05-31 09:15] VITALS: PULSE 61; RESP 18; O2SAT 99
--- NOTE | 2025-05-31 12:45 | PM.DS ---
DS: Admitting Diagnosis Discharge Date 05/31/2025 Admitting Diagnosis AMS DS: Discharge Diagnosis Discharge Diagnosis (1) UTI (urinary tract infection): Qualifiers: Hematuria presence: without hematuria Urinary tract infection type: site unspecified Qualified Code(s): N39.0 - Urinary tract infection, site not specified Code(s): N39.0 - Urinary tract infection, site not specified Status: Acute (2) COVID: Code(s): U07.1 - COVID-19 Status: Acute (3) Altered mental status: Qualifiers: Altered mental status type: unspecified Qualified Code(s): R41.82 - Altered mental status, unspecified Code(s): R41.82 - Altered mental status, unspecified Status: Acute DS: Summary Hospital Course Hospital Course: 74-year-old male past medical history of BPH, depression/anxiety, dementia presented to the account of altered mental status. At the time of this encounter patient was along its unoriented place person but not time. Was unable to provide any history except same day he did not remember what happened that indication ER presentation. CT head unremarkable, CT AP urinary bladder wall thickening associated with cystitis and large amount of stool in the rectal vault. Covid screen positive. UA positive for for nitrate, leukocyte esterase, pyuria. Patient was managed for Covid with remdesivir, Started on Rocephin and IVF, and Dulcolax suppository. However patient declined all IV interventions. However today he is alert and oriented x3, was eating and feeding himself at the time of this encounter this morning. Discharge this mornign on 3 days of Cefdinir. Thus patient was discharged back to senior living. continue home meds F/u with PCP in 3-5 days Time Spent with Patient Time attestation: Total time spent providing and/or coordinating discharge services: DS: Data Data Completed and Pending Labs on day of discharge: Labs from last 24 hours 05/30/25 00:20 Puncture Site Not Reportable ABG PO2/FiO2 Ratio Not Reportable VBG pH Not Reportable VBG pCO2 Not Reportable VBG pO2 Not Reportable VBG HCO3 Not Reportable Oxyhemoglobin Not Reportable O2 Delivery Device Not Reportable O2 Liters/Min Not Reportable Discharge Plan Discharge Attending physician on discharge: Tad Navarro Discharging Clinician: Tad Navarro Anticipated Discharge Date/Time: 05/31/25 12:40 Patient Disposition: [facility] Activity: as tolerated Diet: as tolerated and regular Patient Instructions: Antibiotic Form, Apixaban (By mouth) Patient Language: Croatian Stand Alone Forms: General Discharge Information Follow-up/Referrals: PHYSICIAN NOT ON STAFF,NONSTAFF [Primary Care Provider] Referral Note: F/u with PCP in 3-5 days Discharge Medications: New cefdinir 300 mg capsule 300 mg PO Q12H 3 Days Qty: 6 0RF Continued Eliquis 5 mg tablet 5 mg PO BID atorvastatin 40 mg tablet 40 mg PO QPM cetirizine 10 mg tablet 10 mg PO DAILY cholecalciferol (vitamin D3) 25 mcg (1,000 unit) capsule 25 mcg PO DAILY divalproex 500 mg tablet,delayed release (DR/EC) 500 mg PO .am duloxetine 60 mg capsule,delayed release(DR/EC) 60 mg PO DAILY finasteride 5 mg tablet 5 mg PO DAILY gabapentin 600 mg tablet 600 mg PO Q8H hydrocodone-acetaminophen 5-325 mg tablet 1 tablet PO Q12H ipratropium-albuterol 0.5 mg-3 mg(2.5 mg base)/3 mL solution for nebulization 3 ml INHALATION Q8H memantine 10 mg tablet 10 mg PO BID nortriptyline 25 mg capsule 25 mg PO .night omeprazole 20 mg capsule,delayed release(DR/EC) 20 mg PO DAILY tamsulosin 0.4 mg capsule 0.4 mg PO .bedtime thiamine mononitrate (vit B1) [Vitamin B-1 (mononitrate)] 100 mg tablet 100 mg PO DAILY Date of admission: 05/30/25 02:48 Primary Care Provider: PHYSICIAN NOT ON STAFF,NONSTAFF Admitting Provider: Tammy Luna Attending physician on admission: Tammy Luna Condition: Stable
--- NOTE | 2025-05-31 12:57 | PCPTNOTE ---
orders received for PT eval. Pt has been discharged to return to [facility] intermediate care, as was prior to admit.
[2025-05-31 14:00] VITALS: BP 134/76; PULSE 63; RESP 18; TEMP 36.2; O2SAT 96
[2025-05-31 14:42] LABS: Hematocrit 38.9 % (42.0-52.0); Hemoglobin 12.4 g/dL (14.0-18.0); Immature Granulocyte Percent A 0.2 % (0-0.5); Lymphocytes Absolute Auto 1.66 K/mm3 (0.9-3.2); Mean Corpuscular HGB Conc 31.9 g/dl (32-36); Mean Corpuscular Hemoglobin 28.1 pg (26-34); Mean Corpuscular Volume 88.0 fl (80-100); Nucleated Red Blood Cells Absolute Auto 0.000 K/mm3 (0.0-0.012); Nucleated Red Blood Cells Perc 0.0 % (0.0-0.2); Platelet Count Result 141 k/mm3 (150-375); Red Blood Count 4.42 M/mm3 (4.6-6.20); White Blood Count 4.8 K/mm3 (4.5-10.0)
[2025-05-31 15:07] LABS: Alanine Aminotransferase 19 U/L (6-50); Albumin Level 3.8 g/dL (3.5-5.1); Alkaline Phosphatase 49 U/L (38-126); Anion Gap 6 mmol/L (4-12); Aspartate Amino Transferase 30 U/L (17-59); Bilirubin,Total 0.5 mg/dL (0.2-1.3); Blood Urea Nitrogen 19 mg/dL (9-20); Calcium 8.7 mg/dL (8.4-10.2); Carbon Dioxide 24 mmol/L (22-30); Chloride 106 mmol/L (98-107); Estimated CRCL calculation 63 ml/min; Estimated Glomerular Filt Rate > 60; Glucose 96 mg/dL (65-110); Magnesium 2.0 mg/dL (1.6-2.3); Potassium 3.9 mmol/L (3.4-5.0); Sodium 136 mmol/L (137-145); Total Protein 6.9 g/dL (6.3-8.2)
== END 2025-05-31 16:05 ==
LOC: ANHED 05-30 02:50 → ANH3MEDSUR 05-30 16:03
PROVIDERS: Admitting Provider Internal Medicine; Emergency Provider Student in an Organized Health Care Education/Training Program; Visit Provider Internal Medicine
DX: N39.0 Urinary tract infection, site not specified (principal); U07.1 COVID-19; W19.XXXA Unspecified fall, initial encounter; F11.90 Opioid use, unspecified, uncomplicated; F03.90 Unspecified dementia, unspecified severity, without behavioral disturbance, psychotic disturbance, mood disturbance, and anxiety; F80.89 Other developmental disorders of speech and language; Z20.822 Contact with and (suspected) exposure to COVID-19
CPT/HCPCS: 36415; 36600; 70450; 70496; 70498; 71045; 71260; 72125; 74177; 80053; 80143; 80179; 80307; 81001; 82077; 82550; 82803; 82805; 83605; 83690; 83735; 83880; 84100; 84145; 84443; 84484; 85018; 85025; 85610; 85730; 86140; 87040; 87086; 87186; 87637; 92523; 93005; 96361; 96365; 96375; 99285; A9270; G0378; J0248; J0696; J2312; J7030; Q9967